=== PATIENT | female | born 1940 | race Caucasian/White ===

== ENCOUNTER 2017-03-20 11:31 | Inpatient (IN) | payer MEDICARE ==
[~2017-03-20] VITALS: Ht 182.9 cm; Wt 88.1 kg
[2017-03-20] MEDS ORDERED: ACET325T9 PO (13:46)
[2017-03-20] MEDS ORDERED: OMEG1CAP6 PO (13:46)
[2017-03-20] MEDS ORDERED: SIMV20TA3 PO (13:46)
[2017-03-20] MEDS ORDERED: ASPI-630 PO (13:46)
[2017-03-20] MEDS ORDERED: CHOL100013 PO (13:46)
[2017-03-20] MEDS: ACETAMINOPHEN 325 MG TABLET. PO PRN (14:51)
[2017-03-20 15:00] VITALS: BP 139/78
[2017-03-20 15:28] LABS: BASO % 0 % (0-3); EOS % 1 % (0-3); HEMATOCRIT 42.4 % (36.0-47.0); HEMOGLOBIN 14.4 g/dL (12.0-15.5); LYMPH # 1.8 x10^3/uL (1.0-4.8); LYMPH % 16 % (24-48); MEAN CORPUSCULAR HEMOGLOBIN 32 pg (25-35); MEAN CORPUSCULAR HGB CONC 34 g/dL (31-37); MEAN CORPUSCULAR VOLUME 95 fL (79-100); MONO % 22 % (0-9); NEUT % 61 % (31-73); PLATELET COUNT 69 x10^3/uL (140-400); RED BLOOD COUNT 4.48 x10^6/uL (3.50-5.40); RED CELL DISTRIBUTION WIDTH 13.3 % (11.5-14.5); WHITE BLOOD COUNT 11.3 x10^3/uL (4.0-11.0)
[2017-03-20 16:18] LABS: ALBUMIN 3.4 g/dL (3.4-5.0); ALBUMIN/GLOBULIN RATIO 0.9 (1.0-1.7); CALCIUM 9.1 mg/dL (8.5-10.1); CREATININE 0.7 mg/dL (0.6-1.0); GFR 81.6; POTASSIUM 3.8 mmol/L (3.5-5.1); TOTAL BILIRUBIN 0.3 mg/dL (0.2-1.0); TOTAL PROTEIN 7.2 g/dL (6.4-8.2)
[2017-03-20 17:04] LABS: % EOS 1 % (0-5); OVALOCYTES OCC; PLT ESTIMATE DECREASED (ADEQUATE); POLYCHROMASIA SLIGHT; SCHISTOCYTES OCC
[2017-03-20 17:26] LABS: BILIRUBIN,URINE NEGATIVE (NEG); GLUCOSE,URINE NEGATIVE (NEG); NITRITE,URINE NEGATIVE (NEG); PH,URINE 5.5; PROTEIN,URINE 30 mg/dL (NEG-TRACE)
[2017-03-20] MEDS ORDERED: VANCOMYCIN PER PHARMACY MC PRN (17:30)
[2017-03-20 17:40] LABS: RBC,URINE 0 /HPF (0-2)
[2017-03-20 17:41] LABS: BACTERIA,URINE 0 /HPF (0-FEW); SQUAMOUS EPITHELIAL CELL,UR OCC /LPF; WBC,URINE OCC /HPF (0-4)
[2017-03-20] MEDS: PIPERACILLIN/TAZOBACTAM 3.375 GM in IV NORMAL SALINE 50ML 50 ML IV SCH (18:32)
[2017-03-20 18:50] VITALS: BP 132/74
[2017-03-20] MEDS ORDERED: VANCOMYCIN 2 GM in IV NORMAL SALINE 500ML BAG 500 ML IV ONE (19:00)
[2017-03-20 19:59] VITALS: BP 125/75
[2017-03-20] MEDS: SIMVASTATIN 20 MG TABLET PO SCH (20:03)
[2017-03-20 23:00] VITALS: BP 132/101
[2017-03-21] MEDS: PIPERACILLIN/TAZOBACTAM 3.375 GM in IV NORMAL SALINE 50ML 50 ML IV SCH ×2 (00:03→05:37)
[2017-03-21 03:00] VITALS: BP 132/72
[2017-03-21 07:00] VITALS: BP 128/73
[2017-03-21] MEDS ORDERED: VANCOMYCIN 1.5 GM in IV NORMAL SALINE 500ML BAG 500 ML IV SCH (07:00)
--- NOTE | 2017-03-21 07:20 | PDOC ---
Infectious Disease Note ROS ROS GEN: Denies fevers, chills, sweats HEENT: Denies blurred vision, sore throat CV: Denies chest pain RESP: Denies shortness of air, cough GI: Denies n/v/d NEURO: Denies confusion, dizziness MSK: Denies weakness, joint pain/swelling Vital Sign Vital Signs Vital Signs Date Time Temp Pulse Resp B/P (MAP) Pulse Ox O2 Delivery O2 Flow Rate FiO2 03/21/17 03:00 98.1 19 132/72 (92) 90 Room Air 98.1 03/20/17 23:00 73 Physical Exam PHYSICAL EXAM GENERAL: NAD, Alert HEENT: PERRL, OC/OP NECK: Supple, no JVD, no LN LUNGS: Clear HEART: S1S2, no gallop, no murmur ABD: Soft, NT, no organomegaly, no rebound EXT: No edema, no cyanosis [employer]: Alert, oriented x 3, no focal neurologic deficit SKIN: No rash IV: ok Labs Lab Laboratory Tests Test 03/20/17 14:55 03/20/17 16:30 White Blood Count 11.3 x10^3/uL (4.0-11.0) Red Blood Count 4.48 x10^6/uL (3.50-5.40) Hemoglobin 14.4 g/dL (12.0-15.5) Hematocrit 42.4 % (36.0-47.0) Mean Corpuscular Volume 95 fL (79-100) Mean Corpuscular Hemoglobin 32 pg (25-35) Mean Corpuscular Hemoglobin Concent 34 g/dL (31-37) Red Cell Distribution Width 13.3 % (11.5-14.5) Platelet Count 69 x10^3/uL (140-400) Neutrophils (%) (Auto) 61 % (31-73) Lymphocytes (%) (Auto) 16 % (24-48) Monocytes (%) (Auto) 22 % (0-9) Eosinophils (%) (Auto) 1 % (0-3) Basophils (%) (Auto) 0 % (0-3) Neutrophils # (Auto) 6.9 x10^3uL (1.8-7.7) Lymphocytes # (Auto) 1.8 x10^3/uL (1.0-4.8) Monocytes # (Auto) 2.5 x10^3/uL (0.0-1.1) Eosinophils # (Auto) 0.1 x10^3/uL (0.0-0.7) Basophils # (Auto) 0.0 x10^3/uL (0.0-0.2) Segmented Neutrophils % 64 % (35-66) Lymphocytes % 22 % (24-48) Monocytes % 13 % (0-10) Eosinophils % 1 % (0-5) Platelet Estimate Decreased (ADEQUATE) Large Platelets Occ Polychromasia Slight Ovalocytes Occ Schistocytes Occ Sodium Level 143 mmol/L (136-145) Potassium Level 3.8 mmol/L (3.5-5.1) Chloride Level 103 mmol/L (98-107) Carbon Dioxide Level 34 mmol/L (21-32) Anion Gap 6 (6-14) Blood Urea Nitrogen 19 mg/dL (7-20) Creatinine 0.7 mg/dL (0.6-1.0) Estimated GFR (Cockcroft-Gault) 81.6 BUN/Creatinine Ratio 27 (6-20) Glucose Level 161 mg/dL (70-99) Calcium Level 9.1 mg/dL (8.5-10.1) Total Bilirubin 0.3 mg/dL (0.2-1.0) Aspartate Amino Transf (AST/SGOT) 19 U/L (15-37) Alanine Aminotransferase (ALT/SGPT) 29 U/L (14-59) Alkaline Phosphatase 65 U/L (46-116) Total Protein 7.2 g/dL (6.4-8.2) Albumin 3.4 g/dL (3.4-5.0) Albumin/Globulin Ratio 0.9 (1.0-1.7) Urine Color Kelsey Urine Clarity Clear Urine pH 5.5 Urine Specific [place] >=1.030 Urine Protein 30 mg/dL (NEG-TRACE) Urine Glucose (UA) Negative mg/dL (NEG) Urine Ketones (Stick) Trace mg/dL (NEG) Urine Blood Negative (NEG) Urine Nitrite Negative (NEG) Urine Bilirubin Negative (NEG) Urine Urobilinogen Dipstick 1.0 mg/dL (0.2 mg/dL) Urine Leukocyte Esterase Negative (NEG) Urine RBC 0 /HPF (0-2) Urine WBC Occ /HPF (0-4) Urine Squamous Epithelial Cells Occ /LPF Urine Bacteria 0 /HPF (0-FEW) Urine Mucus Mod /LPF Objective Assessment Leukocytosis Right facial cellulitis Sinusitis Hyperglycemia thrombocytopenia ? early COPD Plan Plan of Care Change to Unasyn Cont Zyvox Afrin for 2 days Hgb A1c F/u labs and response Thank you # [id number] JANE HERNANDEZ MD Mar 21, 2017 07:20
[2017-03-21] MEDS: AMPICILLIN/SULBACTAM 3 GM in IV NORMAL SALINE 100ML 100 ML IV SCH ×4 (08:43→23:23)
[2017-03-21] MEDS: LINEZOLID 600 MG TABLET PO SCH ×2 (08:47→20:09)
[2017-03-21] MEDS: OMEGA-3 FATTY ACIDS/FISH OIL 1,000 MG CAPSULE. PO SCH (08:47)
[2017-03-21] MEDS: CHOLECALCIFEROL (VITAMIN D3) 1,000 UNIT TABLET PO SCH (08:47)
[2017-03-21] MEDS: OXYMETAZOLINE 0.05% NASAL SPRAY 30ML BOTTLE. NS SCH ×2 (08:48→20:09)
[2017-03-21] MEDS: ASPIRIN CHEWABLE 81 MG TABLET. PO SCH (08:48)
[2017-03-21 09:02] LABS: HEMATOCRIT 40.2 % (36.0-47.0); HEMOGLOBIN 14.3 g/dL (12.0-15.5); RED BLOOD COUNT 4.33 x10^6/uL (3.50-5.40); RED CELL DISTRIBUTION WIDTH 13.1 % (11.5-14.5); WHITE BLOOD COUNT 6.6 x10^3/uL (4.0-11.0)
--- NOTE | 2017-03-21 10:32 | PDOC ---
GENERAL General: see dictated H&P. Problems: VITAL SIGNS Vital Signs: Vital Signs Date Time Temp Pulse Resp B/P (MAP) Pulse Ox O2 Delivery O2 Flow Rate FiO2 03/21/17 07:00 98.4 63 20 128/73 (91) 88 Room Air 98.4 ALLERGIES Allergies: Allergies Coded Allergies Type Severity Reaction Last Updated Verified No Known Drug Allergies 03/20/17 No MEDS Medications: Current Medications Medications (Trade) Dose Ordered Sig/Christie Start Time Stop Time Status Last Admin Dose Admin Acetaminophen (Tylenol) 650 mg PRN Q6HRS PRN 03/20/17 14:45 03/20/17 14:51 650 MG Ampicillin Sodium/ Sulbactam Sodium 3 gm/Sodium Chloride 100 ml @ 200 mls/hr Q6HRS 03/21/17 08:00 03/21/17 08:43 200 MLS/HR Aspirin (Children'S Aspirin) 81 mg DAILY 03/21/17 09:00 03/21/17 08:48 81 MG Fish Oil (Fish Oil) 1,000 mg DAILY 03/21/17 09:00 03/21/17 08:47 1,000 MG Linezolid (Zyvox) 600 mg BID 03/21/17 09:00 03/21/17 08:47 600 MG Nicotine (Nicoderm Cq 14mg) 1 patch PRN DAILY PRN 03/20/17 15:45 Oxymetazoline HCl (Afrin) 2 spray BID 03/21/17 09:00 03/21/17 08:48 2 SPRAY Piperacillin Sod/ Tazobactam Sod 3.375 gm/Sodium Chloride 50 ml @ 100 mls/hr Q6HRS 03/20/17 18:00 03/21/17 07:13 DC 03/21/17 05:37 100 MLS/HR Simvastatin (Zocor) 20 mg QHS 03/20/17 21:00 03/20/17 20:03 20 MG Vancomycin HCl 1 each 1X ONCE 03/22/17 06:30 03/22/17 06:30 DC Vancomycin HCl (Vanco Per Pharmacy) 1 each PRN DAILY PRN 03/20/17 17:30 03/21/17 07:13 DC 03/20/17 17:31 1 EACH Vancomycin HCl 1.5 gm/Sodium Chloride 500 ml @ 250 mls/hr Q12H 03/21/17 07:00 03/21/17 07:13 DC 03/21/17 06:24 250 MLS/HR Vancomycin HCl 2 gm/Sodium Chloride 500 ml @ 250 mls/hr 1X ONCE 03/20/17 19:00 03/20/17 20:59 DC 03/20/17 19:51 250 MLS/HR Vitamin D (Vitamin D3) 1,000 unit DAILY 03/21/17 09:00 03/21/17 08:47 1,000 UNIT LAB Lab: Laboratory Tests Test 03/20/17 14:55 03/20/17 16:30 03/21/17 08:55 White Blood Count 11.3 x10^3/uL (4.0-11.0) 6.6 x10^3/uL (4.0-11.0) Red Blood Count 4.48 x10^6/uL (3.50-5.40) 4.33 x10^6/uL (3.50-5.40) Hemoglobin 14.4 g/dL (12.0-15.5) 14.3 g/dL (12.0-15.5) Hematocrit 42.4 % (36.0-47.0) 40.2 % (36.0-47.0) Mean Corpuscular Volume 95 fL (79-100) 93 fL (79-100) Mean Corpuscular Hemoglobin 32 pg (25-35) 33 pg (25-35) Mean Corpuscular Hemoglobin Concent 34 g/dL (31-37) 36 g/dL (31-37) Red Cell Distribution Width 13.3 % (11.5-14.5) 13.1 % (11.5-14.5) Platelet Count 69 x10^3/uL (140-400) 69 x10^3/uL (140-400) Neutrophils (%) (Auto) 61 % (31-73) Lymphocytes (%) (Auto) 16 % (24-48) Monocytes (%) (Auto) 22 % (0-9) Eosinophils (%) (Auto) 1 % (0-3) Basophils (%) (Auto) 0 % (0-3) Neutrophils # (Auto) 6.9 x10^3uL (1.8-7.7) Lymphocytes # (Auto) 1.8 x10^3/uL (1.0-4.8) Monocytes # (Auto) 2.5 x10^3/uL (0.0-1.1) Eosinophils # (Auto) 0.1 x10^3/uL (0.0-0.7) Basophils # (Auto) 0.0 x10^3/uL (0.0-0.2) Segmented Neutrophils % 64 % (35-66) Lymphocytes % 22 % (24-48) Monocytes % 13 % (0-10) Eosinophils % 1 % (0-5) Platelet Estimate Decreased (ADEQUATE) Large Platelets Occ Polychromasia Slight Ovalocytes Occ Schistocytes Occ Sodium Level 143 mmol/L (136-145) Potassium Level 3.8 mmol/L (3.5-5.1) Chloride Level 103 mmol/L (98-107) Carbon Dioxide Level 34 mmol/L (21-32) Anion Gap 6 (6-14) Blood Urea Nitrogen 19 mg/dL (7-20) Creatinine 0.7 mg/dL (0.6-1.0) Estimated GFR (Cockcroft-Gault) 81.6 BUN/Creatinine Ratio 27 (6-20) Glucose Level 161 mg/dL (70-99) Calcium Level 9.1 mg/dL (8.5-10.1) Total Bilirubin 0.3 mg/dL (0.2-1.0) Aspartate Amino Transf (AST/SGOT) 19 U/L (15-37) Alanine Aminotransferase (ALT/SGPT) 29 U/L (14-59) Alkaline Phosphatase 65 U/L (46-116) Total Protein 7.2 g/dL (6.4-8.2) Albumin 3.4 g/dL (3.4-5.0) Albumin/Globulin Ratio 0.9 (1.0-1.7) Urine Color Kelsey Urine Clarity Clear Urine pH 5.5 Urine Specific [place] >=1.030 Urine Protein 30 mg/dL (NEG-TRACE) Urine Glucose (UA) Negative mg/dL (NEG) Urine Ketones (Stick) Trace mg/dL (NEG) Urine Blood Negative (NEG) Urine Nitrite Negative (NEG) Urine Bilirubin Negative (NEG) Urine Urobilinogen Dipstick 1.0 mg/dL (0.2 mg/dL) Urine Leukocyte Esterase Negative (NEG) Urine RBC 0 /HPF (0-2) Urine WBC Occ /HPF (0-4) Urine Squamous Epithelial Cells Occ /LPF Urine Bacteria 0 /HPF (0-FEW) Urine Mucus Mod /LPF WANDER SALMON MD Mar 21, 2017 10:32
[2017-03-21 11:00] VITALS: BP 126/72
--- NOTE | 2017-03-21 11:33 | HP ---
ADMIT DATE: 03/20/2017 CHIEF COMPLAINT AND HISTORY OF PRESENT ILLNESS: This is a 76-year-old white male who is well known to me from followup in the office. The patient was seen on the day of admission in the office and had been to urgent care earlier in the week for the facial cellulitis. It started on the right side, was progressing to the left despite being on Augmentin. He had had some fevers and chills, was generally not feeling well and it was elected to admit him to the hospital for facial cellulitis with some evidence of some induration to the right of the nasal bridge. PAST MEDICAL HISTORY: Remarkable for hyperlipidemia. PAST SURGICAL HISTORY: Remarkable for tonsillectomy and adenoidectomy, cataract surgeries, and bilateral total knee replacements. MEDICATIONS: Brought with the patient, listed on the computer and have been addressed. ALLERGIES: No known drug allergies. SOCIAL HISTORY: He is a smoker, does drink beer, does not use drugs. FAMILY HISTORY: Noncontributory. REVIEW OF SYSTEMS: As that is mentioned above. PHYSICAL EXAMINATION: GENERAL: He is a well-developed, well-nourished white male who does not appear to be in any acute distress. VITAL SIGNS: Stable. He is afebrile in the office. HEAD, EYES, EARS, NOSE, THROAT: Remarkable for right greater than left facial cellulitis with again an area of approximately 3 x 1-1/2 inch area of induration on the right side lateral to the bridge of the nose. NECK: Supple, without any thyromegaly. CHEST: Reveals occasional rhonchi, but good breath sounds. HEART: Regular rate and rhythm without S3, S4 or murmur. ABDOMEN: Soft, nontender, without hepatosplenomegaly or masses. EXTREMITIES: Without cyanosis, clubbing or edema. NEUROLOGIC: He is intact. IMPRESSION: Failed outpatient treatment of facial cellulitis as outlined above. PLAN: The patient has been admitted. Infectious Disease will be consulted for direction on antibiotics from this point forward, and we will need to watch this area on his face to make sure it does not require an incision and drainage before it is over. WANDER SALMON MD DR: FILIPE/mehran JOB#: [id number] / [id number]
[2017-03-21] MEDS: NICOTINE 14MG PATCH. TD PRN (11:44)
[2017-03-21 14:58] VITALS: BP 109/69
[2017-03-21] MEDS: ACETAMINOPHEN 325 MG TABLET. PO PRN (18:03)
[2017-03-21 19:00] VITALS: BP 119/82
[2017-03-21] MEDS: SIMVASTATIN 20 MG TABLET PO SCH (20:09)
--- NOTE | 2017-03-21 21:33 | CONS ---
DATE OF CONSULTATION: 03/21/2017 PATIENT ROOM: 517. REQUESTING PHYSICIAN: Arden Silva MD REASON FOR CONSULTATION: Cellulitis, sinusitis. HISTORY OF PRESENT ILLNESS: The patient is a pleasant 76-year-old gentleman, has a significant past medical history who states that Thursday evening with today being Thursday, he went to bed, had a little discomfort in the right side of his nose. When he awakened Thursday, the area on the right side of his nose was swollen and his eye was almost swollen shut. He presented to [facility] and they requested that he be admitted, but he denied admission and they give him a pill and a prescription and he left. He awakened with both eyes swollen shut. He again returned to [facility] Emergency Room, they asked for him to be admitted, but he declined; they given IV antibiotic and he was discharged and he followed up with Dr. Silva on Thursday and subsequently was sent to [facility] for admission. He has not been having any fevers, no chills. He has had occasional sweats. He has a little bit of headache at times. No change in vision. He had a little bit of blood out of the right side of his nose using a Q-tip, but denies any drainage down the back of his throat. Denies any complications with his ears. No cough. He had no chest pain, no nausea or vomiting, no diarrhea. He is a little bit constipated ____. No problems passing his urine. Denies any bug bites or trauma to the area that he knows off. Now, he has been admitted. His white blood cell count was 11.3 at the time of presentation. He has been placed on vancomycin, Zosyn and Zyvox. PAST MEDICAL HISTORY: Positive for hyperlipidemia. PAST SURGICAL HISTORY: Positive for cataract surgery, tonsillectomy, vasectomy, bilateral knee replacements and has a history of a left lower extremity fracture. REVIEW OF SYSTEMS: Otherwise negative except for as mentioned above. ALLERGIES: No known drug allergies. SOCIAL HISTORY: He is a smoker, has occasional alcohol use. No pets. He is not . He is a retired tinsley. FAMILY HISTORY: Positive for a brother who with complications of diabetes. He thinks his father was diabetic too. CURRENT MEDICATIONS: Include Zosyn, vancomycin, Zyvox, aspirin, nicotine patch, omega-3, Zocor. PHYSICAL EXAMINATION: VITAL SIGNS: He is afebrile, temperature 98.1, pulse 73, respirations 19, blood pressure 132/72, satting 98% on room air. CONSTITUTIONAL: He is a pleasant gentleman. He is cooperative. He is in no acute distress. HEENT: Pupils are status post cataract surgery. He has normal conjunctivae. His right nasal area is swollen. His right nasal passage is also obstructed. There is some tenderness and some induration associated with the right side ____ as well as some erythema. Oral cavity, oropharynx, has dentures, otherwise clear. NECK: Supple, no JVD. LUNGS: Had some mild trace wheeze on the right. HEART: S1, S2. ABDOMEN: Obese, soft, nontender, nondistended with positive bowel sounds. EXTREMITIES: Without clubbing or cyanosis. No gross edema. SKIN: Without signs of rash. NEUROLOGIC: He is nonfocal. PSYCHIATRIC: Affect is pleasant. LABORATORY VALUES: White count 11.3, hemoglobin 14.4, platelets of 69, neutrophils 61, lymphs are 61, monos are 22. Creatinine 0.7, glucose 161. He had normal liver function study tests. Urinalysis is clean. There are no radiological studies. IMPRESSION: 1. Leukocytosis. 2. Right facial cellulitis. 3. Sinusitis. 4. Hyperglycemia. 5. Thrombocytopenia. 6. Questionable early chronic obstructive pulmonary disease. RECOMMENDATIONS: We will change to Unasyn. We will continue the Zyvox, but orally. Continues Afrin for 2 days. Check a hemoglobin A1c given his elevation of his glucose and family history. Follow up on labs and response. Thank you for allowing me to participate in this patient's care. If you have any questions, please do not hesitate to contact me. JANE HERNANDEZ MD DR: KATRIN/mehran JOB#: [id number] / [id number]
[2017-03-21 23:00] VITALS: BP 139/77
[2017-03-22 03:13] VITALS: BP 126/79
[2017-03-22] MEDS: AMPICILLIN/SULBACTAM 3 GM in IV NORMAL SALINE 100ML 100 ML IV SCH ×4 (05:48→23:14)
[2017-03-22 07:00] VITALS: BP 149/82
[2017-03-22] MEDS: CHOLECALCIFEROL (VITAMIN D3) 1,000 UNIT TABLET PO SCH (07:47)
[2017-03-22] MEDS: OMEGA-3 FATTY ACIDS/FISH OIL 1,000 MG CAPSULE. PO SCH (07:48)
[2017-03-22] MEDS: LINEZOLID 600 MG TABLET PO SCH ×2 (07:48→20:32)
[2017-03-22] MEDS: ASPIRIN CHEWABLE 81 MG TABLET. PO SCH (07:48)
[2017-03-22] MEDS: NICOTINE 14MG PATCH. TD PRN (07:49)
[2017-03-22] MEDS: OXYMETAZOLINE 0.05% NASAL SPRAY 30ML BOTTLE. NS SCH ×2 (07:57→20:35)
[2017-03-22] MEDS: ACETAMINOPHEN 325 MG TABLET. PO PRN (07:57)
--- NOTE | 2017-03-22 09:59 | PDOC ---
Infectious Disease Note Subjective Subjective Breathing a little better through right nostril Less facial redness, swelling and pain ROS ROS GEN: Denies fevers, chills, sweats HEENT: Denies blurred vision, sore throat CV: Denies chest pain RESP: Denies shortness of air, cough GI: Denies n/v/d Vital Sign Vital Signs Vital Signs Date Time Temp Pulse Resp B/P (MAP) Pulse Ox O2 Delivery O2 Flow Rate FiO2 03/22/17 08:00 Room Air 03/22/17 07:00 97.7 72 18 149/82 (104) 92 97.7 Physical Exam PHYSICAL EXAM GENERAL: Propped up in bed, NAD HEENT: PERRL, OC/OP clear. Mild localized induration and swelling of right side of nose near eye, mildly tender. No redness NECK: Supple LUNGS: Clear HEART: S1 andS2 ABD: Soft, NT EXT: No edema, no cyanosis [employer]ESSIONAL: Alert, oriented x 3, no focal neurologic deficit SKIN: No rash IV: ok Objective Assessment Leukocytosis, better Right facial cellulitis, improving Sinusitis Hyperglycemia Thrombocytopenia ? early COPD Plan Plan of Care Zyvox and Unasyn Afrin for 2 days Hgb A1c 5.6 D/w MARQUITA SAUL BRITTANY Mar 22, 2017 09:59
[2017-03-22 11:00] VITALS: BP 131/70
--- NOTE | 2017-03-22 13:52 | PDOC ---
SUBJECTIVE Subjective much better OBJECTIVE Vital Signs Vital Signs Date Time Temp Pulse Resp B/P (MAP) Pulse Ox O2 Delivery O2 Flow Rate FiO2 03/22/17 11:00 97.9 68 20 131/70 (90) 92 Room Air 97.9 03/22/17 08:00 Room Air 03/22/17 07:00 97.7 72 18 149/82 (104) 92 Room Air 97.7 03/22/17 03:13 96.6 72 20 126/79 (95) 91 Room Air 96.6 03/21/17 23:00 97.7 59 20 139/77 (97) 92 Room Air 97.7 03/21/17 20:00 Room Air 03/21/17 19:00 98.4 64 20 119/82 (94) 95 Room Air 98.4 03/21/17 14:58 97.7 67 20 109/69 (82) 92 Room Air 97.7 PHYSICAL EXAM Physical Exam right face swelling and pain much better heart RRR lungs clear ext no edema abd soft and none tender ASSESSMENT/PLAN Assessment/Plan 1- Right facial cellulitis, improving on IV Abx by ID 2- Sinusitis 3-eukocytosis, better 4- Hyperglycemia HbA1c 5.6 brother diabetic discussed diet and loose wt 5- Thrombocytopenia Dr. Silva will resume care in AM Problems: WESLEY JOHNSON MD Mar 22, 2017 13:52
[2017-03-22 15:00] VITALS: BP 140/95
[2017-03-22 19:00] VITALS: BP 126/72
[2017-03-22] MEDS: SIMVASTATIN 20 MG TABLET PO SCH (20:32)
[2017-03-22 22:57] VITALS: BP 150/85
[2017-03-23 03:00] VITALS: BP 124/70
[2017-03-23 04:58] LABS: BASO % 0 % (0-3); EOS % 2 % (0-3); HEMATOCRIT 40.1 % (36.0-47.0); HEMOGLOBIN 13.6 g/dL (12.0-15.5); LYMPH # 1.5 x10^3/uL (1.0-4.8); LYMPH % 27 % (24-48); MEAN CORPUSCULAR HEMOGLOBIN 32 pg (25-35); MEAN CORPUSCULAR HGB CONC 34 g/dL (31-37); MEAN CORPUSCULAR VOLUME 95 fL (79-100); MONO % 23 % (0-9); NEUT % 48 % (31-73); PLATELET COUNT 82 x10^3/uL (140-400); RED BLOOD COUNT 4.25 x10^6/uL (3.50-5.40); WHITE BLOOD COUNT 5.7 x10^3/uL (4.0-11.0)
[2017-03-23 05:11] LABS: CALCIUM 8.8 mg/dL (8.5-10.1); CREATININE 0.6 mg/dL (0.6-1.0); GFR 97.5; POTASSIUM 4.1 mmol/L (3.5-5.1)
[2017-03-23] MEDS: AMPICILLIN/SULBACTAM 3 GM in IV NORMAL SALINE 100ML 100 ML IV SCH (05:21)
[2017-03-23 07:30] VITALS: BP 141/68
--- NOTE | 2017-03-23 08:41 | PDOC ---
Infectious Disease Note Subjective Subjective Better and ready to go home Less facial redness, swelling and pain. No fullness or pain with biting ROS ROS GEN: Denies fevers, chills, sweats HEENT: Denies blurred vision, sore throat CV: Denies chest pain RESP: Denies shortness of air, cough GI: Denies n/v/d NEURO: Denies confusion, dizziness MSK: Denies weakness, joint pain/swelling Vital Sign Vital Signs Vital Signs Date Time Temp Pulse Resp B/P (MAP) Pulse Ox O2 Delivery O2 Flow Rate FiO2 03/23/17 03:00 96.4 72 18 124/70 (88) 93 Room Air 96.4 Physical Exam PHYSICAL EXAM GENERAL: NAD, Alert HEENT: PERRL, OC/OP - clear with dentures NECK: Supple, no JVD, no LN LUNGS: Clear HEART: S1S2, no gallop, no murmur ABD: Soft, NT, no organomegaly, no rebound EXT: No edema, no cyanosis FINANCE MANAGER: Alert, oriented x 3, no focal neurologic deficit SKIN: No rash IV: ok Labs Lab Laboratory Tests Test 03/23/17 03:50 White Blood Count 5.7 x10^3/uL (4.0-11.0) Red Blood Count 4.25 x10^6/uL (3.50-5.40) Hemoglobin 13.6 g/dL (12.0-15.5) Hematocrit 40.1 % (36.0-47.0) Mean Corpuscular Volume 95 fL (79-100) Mean Corpuscular Hemoglobin 32 pg (25-35) Mean Corpuscular Hemoglobin Concent 34 g/dL (31-37) Red Cell Distribution Width 13.0 % (11.5-14.5) Platelet Count 82 x10^3/uL (140-400) Neutrophils (%) (Auto) 48 % (31-73) Lymphocytes (%) (Auto) 27 % (24-48) Monocytes (%) (Auto) 23 % (0-9) Eosinophils (%) (Auto) 2 % (0-3) Basophils (%) (Auto) 0 % (0-3) Neutrophils # (Auto) 2.7 x10^3uL (1.8-7.7) Lymphocytes # (Auto) 1.5 x10^3/uL (1.0-4.8) Monocytes # (Auto) 1.3 x10^3/uL (0.0-1.1) Eosinophils # (Auto) 0.1 x10^3/uL (0.0-0.7) Basophils # (Auto) 0.0 x10^3/uL (0.0-0.2) Sodium Level 143 mmol/L (136-145) Potassium Level 4.1 mmol/L (3.5-5.1) Chloride Level 106 mmol/L (98-107) Carbon Dioxide Level 33 mmol/L (21-32) Anion Gap 4 (6-14) Blood Urea Nitrogen 13 mg/dL (7-20) Creatinine 0.6 mg/dL (0.6-1.0) Estimated GFR (Cockcroft-Gault) 97.5 Glucose Level 106 mg/dL (70-99) Calcium Level 8.8 mg/dL (8.5-10.1) Objective Assessment Leukocytosis -better Right facial cellulitis - better Sinusitis -better Hyperglycemia thrombocytopenia -better ? early COPD Plan Plan of Care Cont Zyvox this am D/c Unasyn dose Augmentin D/c Afrin Ok to d/c home Has 8 days of Augmentin at home so can finish that out Home on Doxy also for 7 days. Cautioned on sun exposure F/u with Dr. Silva D/w JANE HERNANDEZ MD Mar 23, 2017 08:41
[2017-03-23] MEDS: OMEGA-3 FATTY ACIDS/FISH OIL 1,000 MG CAPSULE. PO SCH (08:42)
[2017-03-23] MEDS: CHOLECALCIFEROL (VITAMIN D3) 1,000 UNIT TABLET PO SCH (08:42)
[2017-03-23] MEDS: LINEZOLID 600 MG TABLET PO SCH (08:42)
[2017-03-23] MEDS: ASPIRIN CHEWABLE 81 MG TABLET. PO SCH (08:42)
[2017-03-23] MEDS ORDERED: AMOXICILLIN/K CLAV 875/125MG TABLET. PO ONE (08:45)
[2017-03-23 10:30] VITALS: BP 138/66
--- NOTE | 2017-03-24 02:10 | DS ---
DATE OF DISCHARGE: 03/23/2017 PRIMARY DIAGNOSIS: Right facial cellulitis, unresponsive to outpatient therapy. ADDITIONAL DIAGNOSES: Leukocytosis, improved; sinusitis, improved; hyperglycemia and thrombocytopenia, improving. CHIEF COMPLAINT AND HISTORY OF PRESENT ILLNESS: This is a 76-year-old white male who was admitted with failed outpatient treatment of right facial cellulitis with fevers, chills, pain. SUMMARY OF STAY: The patient was admitted, treated with Unasyn and Zyvox, improved dramatically throughout the stay to the point where he was felt he could be dismissed on the day of discharge by ID on 8 more days of Augmentin and a week of doxycycline. His leukocytosis of 11,000 improved with antibiotics. His facial cellulitis essentially resolved. He was noted to be thrombocytopenic in a range of about 80,000; this was improving by the time of discharge. Rest of his hematologic ____ were normal. This will be followed as an outpatient. He was also noted to be hyperglycemic on admission with sugar of 161 that was 106 when rechecked on the day of discharge. DISPOSITION: The patient is discharged to home, regular diet, activity as tolerated. Office in 1 week. DISCHARGE MEDICATIONS: Listed on the med rec and have been addressed ____ usual home meds plus the Augmentin and doxycycline as outlined above. WANDER SALMON MD DR: FILIPE/mehran JOB#: [id number] / [id number]
== END 2017-03-23 12:07 | disposition home or self-care (01) | DRG 603 ==
LOC: 5 NORTH 12:52 → EDSEX 12:52
PROVIDERS: ADMIT Family Medicine; ATTEND Family Medicine
DX: L03.211 Cellulitis of face (principal); D69.6 Thrombocytopenia, unspecified; J32.9 Chronic sinusitis, unspecified; E78.5 Hyperlipidemia, unspecified; F17.200 Nicotine dependence, unspecified, uncomplicated; R73.9 Hyperglycemia, unspecified; Z96.653 Presence of artificial knee joint, bilateral; K59.00 Constipation, unspecified; Z83.3 Family history of diabetes mellitus; Z90.89 Acquired absence of other organs; Z98.49 Cataract extraction status, unspecified eye
CPT/HCPCS: 36415; 80048; 80053; 81001; 83036; 85007; 85025; 85027; 99406; J0295; J2020; J2543; J3370; J7040

== ENCOUNTER → 2017-07-10 | Outpatient (CLI) | payer MEDICARE | END | disposition home or self-care (01) | LOC: MRI 08:14 | DX: G44.021 Chronic cluster headache, intractable (principal); I73.9 Peripheral vascular disease, unspecified | CPT/HCPCS: 70551 ==

== ENCOUNTER 2020-08-30 17:29 | Emergency (ER) | payer MEDICARE ==
[~2020-08-30] VITALS: Ht 180.3 cm; Wt 97.0 kg
[~2020-08-30 17:29] MED LIST: ACET325T9 PO; ASPI-630 PO; CHOL100013 PO; OMEG1CAP6 PO; SIMV20TA18 PO
[2020-08-30] MEDS ORDERED: IV NORMAL SALINE 1000ML BAG 1,000 ML IV ONE (18:00)
[2020-08-30 18:05] LABS: BILIRUBIN,URINE NEGATIVE (NEG); CLARITY,URINE CLOUDY; COLOR,URINE AMBER; NITRITE,URINE NEGATIVE (NEG); PH,URINE 5.5 (<5.0-8.0); PROTEIN,URINE 30 mg/dL (NEG-TRACE)
[2020-08-30 18:11] LABS: BARBITURATES NEG (NEG); BENZODIAZEPINES NEG (NEG); CANNABINOIDS NEG (NEG); COCAINE NEG (NEG); METHADONE NEG (NEG); OPIATES NEG (NEG); PHENCYCLIDINE NEG (NEG)
[2020-08-30 18:12] LABS: AMPHETAMINE/METHAMPHETAMINE NEG (NEG)
[2020-08-30 18:15] LABS: BACTERIA,URINE 0 /HPF (0-FEW); RBC,URINE TNTC /HPF (0-2)
[2020-08-30] MEDS ORDERED: MORPHINE SULFATE 2 MG/ML VIAL. IV ONE (18:15)
[2020-08-30] MEDS ORDERED: ONDANSETRON PF 4 MG/2 ML VIAL. IVP ONE (18:15)
[2020-08-30 18:22] LABS: BASO # 0.1 x10^3/uL (0.0-0.2); BASO % 1 % (0-3); EOS % 0 % (0-3); HEMATOCRIT 41.9 % (39.0-53.0); HEMOGLOBIN 14.1 g/dL (13.0-17.5); LYMPH # 1.3 x10^3/uL (1.0-4.8); LYMPH % 12 % (24-48); MEAN CORPUSCULAR HEMOGLOBIN 30 pg (25-35); MEAN CORPUSCULAR HGB CONC 34 g/dL (31-37); MEAN CORPUSCULAR VOLUME 88 fL (79-100); MONO # 1.4 x10^3/uL (0.0-1.1); MONO % 13 % (0-9); NEUT % 75 % (31-73); PLATELET COUNT 67 x10^3/uL (140-400); RED BLOOD COUNT 4.73 x10^6/uL (4.30-5.70); RED CELL DISTRIBUTION WIDTH 14.8 % (11.5-14.5); WHITE BLOOD COUNT 10.8 x10^3/uL (4.0-11.0)
--- NOTE | 2020-08-30 18:31 | RAD ---
CT ABDOMEN+PELVIS WO History: Reason: LLQ pain-COVID VACCINE YESTERDAY / Spl. Instructions: / History: Technique: Noncontrast examination of the abdomen and pelvis. Coronal and sagittal reconstructions we re performed. Exposure: One or more of the following individualized dose reduction techniques were utilized for thi s examination: 1. Automated exposure control 2. Adjustment of the mA and/or kV according to patient size 3. Use of iterative reconstruction technique. Comparison: None Findings: Lower chest: No consolidation or pleural effusion. Abdomen and pelvis: The liver, spleen, and pancreas are unremarkable. Cholelithiasis. No biliary duct al dilatation. Right adrenal adenoma measures 2.4 x 2.1 cm. Moderate left hydronephrosis. Left perinephric and perirenal fat stranding. Mild dilatation of the le ft ureter. 4 mm left distal ureteral obstructing calculus (series 2 image 59). Decompressed urinary b ladder. No right hydronephrosis. Additional nonobstructing left intrarenal calculi. Extensive colonic diverticulosis. Normal appendix. No evidence of bowel obstruction. No pathologic ly mphadenopathy. No ascites. Fat-containing umbilical hernia also containing partial loop of small jannet l. Atheromatous plaque throughout the nonaneurysmal abdominal aorta and branch vessels. Rounded densities within the distal small bowel and cecum, likely related to recently ingested materi al. Prostamegaly. Bones: Multilevel lumbar spondylosis with rightward curvature Impression: 1. 4 mm left distal ureteral obstructing calculus contributing to moderate left hydronephrosis and p erinephric/periureteral fat stranding. 2. Additional nonobstructing left intrarenal calculi. 3. Cholelithiasis. Electronically signed by: Dimitri Goodrich DO (08/30/2020 6:29 PM) [facility]
[2020-08-30 18:32] LABS: CALCIUM 9.1 mg/dL (8.5-10.1); CREATININE 0.9 mg/dL (0.7-1.3); GFR 81.6; POTASSIUM 3.9 mmol/L (3.5-5.1)
[2020-08-30 18:38] LABS: ALBUMIN/GLOBULIN RATIO 1.2 (1.0-1.7); TOTAL BILIRUBIN 0.4 mg/dL (0.2-1.0); TOTAL PROTEIN 7.4 g/dL (6.4-8.2)
[2020-08-30] MEDS ORDERED: KETOROLAC 30 MG/ML VIAL. IVP ONE (19:00)
[2020-08-30] MEDS ORDERED: MORPHINE SULFATE 10 MG/ML VIAL. IV ONE (19:00)
[2020-08-30] MEDS ORDERED: TAMSULOSIN 0.4 MG CAP.ER.24H. PO ONE (19:00)
[2020-08-30] MEDS ORDERED: cefTRIAXone IV Push 1 GM VIAL. IVP ONE (19:00)
[2020-08-30 19:39] VITALS: BP 191/84
--- NOTE | 2020-08-30 19:42 | PHYS DOC ---
Past Medical History Past Medical History: COPD Past Surgical History: Tonsillectomy Additional Past Surgical Histo: BILATERAL KNEE SURGERIES Smoking Status: Current Every Day Smoker Alcohol Use: None General Adult EDM: Chief Complaint: ABDOMINAL PAIN HPI: HPI: Patient is a 79 year old male with history of COPD who presents to the ED today complaining of 10 out of 10 left lower quadrant abdominal pain with nausea that began at 1400 today. Patient denies any hematemesis or melena. He states his urine is very dark since this afternoon. Denies any personal history of kidney stones. Describes the pain as sharp and intermittent. Denies anything specifically exacerbating or relieving the pain Review of Systems: Review of Systems: Constitutional: Denies fever or chills. [] Eyes: Denies change in visual acuity. [] HENT: Denies nasal congestion or sore throat. [] Respiratory: Denies cough or shortness of breath. [] Cardiovascular: Denies chest pain or edema. [] GI: Reports left lower quadrant abdominal pain with nausea, denies vomiting, bloody stools or diarrhea. [] : Denies dysuria. [] Musculoskeletal: Denies back pain or joint pain. [] Integument: Denies rash. [] Neurologic: Denies headache, focal weakness or sensory changes. [] Psychiatric: Denies depression or anxiety. [] Heart Score: C/O Chest Pain: N/A Risk Factors: Risk Factors: DM, Current or recent (<one month) smoker, HTN, HLP, family history of CAD, obesity. Risk Scores: Score 0 - 3: 2.5% MACE over next 6 weeks - Discharge Home Score 4 - 6: 20.3% MACE over next 6 weeks - Admit for Clinical Observation Score 7 - 10: 72.7% MACE over next 6 weeks - Early Invasive Strategies Current Medications: Current Medications Medications (Trade) Dose Ordered Sig/Christie Start Time Stop Time Status Last Admin Dose Admin Ceftriaxone Sodium (Rocephin) 1 gm 1X ONCE 08/30/20 19:00 08/30/20 19:01 DC 08/30/20 19:00 1 GM Ketorolac Tromethamine (Toradol 30mg Vial) 30 mg 1X ONCE 08/30/20 19:00 08/30/20 19:01 DC 08/30/20 19:01 30 MG Morphine Sulfate (Morphine Sulfate) 5 mg 1X ONCE 08/30/20 19:00 08/30/20 19:01 DC 08/30/20 19:01 5 MG Ondansetron HCl (Zofran) 4 mg 1X ONCE 08/30/20 18:15 08/30/20 18:16 DC 08/30/20 18:20 4 MG Sodium Chloride 1,000 ml @ 1,000 mls/hr 1X ONCE 08/30/20 18:00 08/30/20 18:59 DC 08/30/20 18:20 1,000 MLS/HR Tamsulosin HCl (Flomax) 0.4 mg 1X ONCE 08/30/20 19:00 08/30/20 19:01 DC 08/30/20 19:01 0.4 MG Allergies: Allergies: Allergies Coded Allergies Type Severity Reaction Last Updated Verified No Known Drug Allergies 03/20/17 No Physical Exam: PE: Constitutional: Well developed, well nourished, no acute distress, non-toxic appearance. [] HENT: Normocephalic, atraumatic, bilateral external ears normal, oropharynx moist, no oral exudates, nose normal. [] Eyes: PERRLA, EOMI, conjunctiva normal, no discharge. [] Neck: Normal range of motion, no tenderness, supple, no stridor. [] Cardiovascular:Heart rate regular rhythm, no murmur [] Lungs & Thorax: Bilateral breath sounds clear to auscultation [] Abdomen: Rounded abdomen. Bowel sounds normal, soft, no right upper quadrant or right lower quadrant tenderness, no left upper quadrant tenderness, slight tenderness to the left lower quadrant, no masses, no pulsatile masses. [] Skin: Warm, dry, no erythema, no rash. [] Back: No tenderness, no CVA tenderness. [] Extremities: No tenderness, no cyanosis, no clubbing, ROM intact, no edema. [] Neurologic: Alert and oriented X 3, normal motor function, normal sensory function, no focal deficits noted. [] Psychologic: Affect normal, judgement normal, mood normal. [] Current Patient Data: Labs: Laboratory Tests Test 08/30/20 17:50 08/30/20 18:14 Urine Collection Type Unknown Urine Color Kelsey Urine Clarity Cloudy Urine pH 5.5 (<5.0-8.0) Urine Specific [place] 1.020 (1.000-1.030) Urine Protein 30 mg/dL (NEG-TRACE) Urine Glucose (UA) Negative mg/dL (NEG) Urine Ketones (Stick) Negative mg/dL (NEG) Urine Blood Large (NEG) Urine Nitrite Negative (NEG) Urine Bilirubin Negative (NEG) Urine Urobilinogen Dipstick 1.0 mg/dL (0.2 mg/dL) Urine Leukocyte Esterase Trace (NEG) Urine RBC Tntc /HPF (0-2) Urine WBC 1-4 /HPF (0-4) Urine Squamous Epithelial Cells Few /LPF Urine Bacteria 0 /HPF (0-FEW) Urine Opiates Screen Neg (NEG) Urine Methadone Screen Neg (NEG) Urine Barbiturates Neg (NEG) Urine Phencyclidine Screen Neg (NEG) Urine Amphetamine/Methamphetamine Neg (NEG) Urine Benzodiazepines Screen Neg (NEG) Urine Cocaine Screen Neg (NEG) Urine Cannabinoids Screen Neg (NEG) Urine Ethyl Alcohol Neg (NEG) White Blood Count 10.8 x10^3/uL (4.0-11.0) Red Blood Count 4.73 x10^6/uL (4.30-5.70) Hemoglobin 14.1 g/dL (13.0-17.5) Hematocrit 41.9 % (39.0-53.0) Mean Corpuscular Volume 88 fL (79-100) Mean Corpuscular Hemoglobin 30 pg (25-35) Mean Corpuscular Hemoglobin Concent 34 g/dL (31-37) Red Cell Distribution Width 14.8 % (11.5-14.5) H Platelet Count 67 x10^3/uL (140-400) L Neutrophils (%) (Auto) 75 % (31-73) H Lymphocytes (%) (Auto) 12 % (24-48) L Monocytes (%) (Auto) 13 % (0-9) H Eosinophils (%) (Auto) 0 % (0-3) Basophils (%) (Auto) 1 % (0-3) Neutrophils # (Auto) 8.0 x10^3/uL (1.8-7.7) H Lymphocytes # (Auto) 1.3 x10^3/uL (1.0-4.8) Monocytes # (Auto) 1.4 x10^3/uL (0.0-1.1) H Eosinophils # (Auto) 0.0 x10^3/uL (0.0-0.7) Basophils # (Auto) 0.1 x10^3/uL (0.0-0.2) Sodium Level 138 mmol/L (136-145) Potassium Level 3.9 mmol/L (3.5-5.1) Chloride Level 102 mmol/L (98-107) Carbon Dioxide Level 29 mmol/L (21-32) Anion Gap 7 (6-14) Blood Urea Nitrogen 15 mg/dL (8-26) Creatinine 0.9 mg/dL (0.7-1.3) Estimated GFR (Cockcroft-Gault) 81.6 BUN/Creatinine Ratio 17 (6-20) Glucose Level 167 mg/dL (70-99) H Calcium Level 9.1 mg/dL (8.5-10.1) Magnesium Level 2.0 mg/dL (1.8-2.4) Total Bilirubin 0.4 mg/dL (0.2-1.0) Aspartate Amino Transferase (AST) 19 U/L (15-37) Alanine Aminotransferase (ALT) 24 U/L (16-63) Alkaline Phosphatase 72 U/L (46-116) Total Protein 7.4 g/dL (6.4-8.2) Albumin 4.0 g/dL (3.4-5.0) Albumin/Globulin Ratio 1.2 (1.0-1.7) Lipase 58 U/L (73-393) L Ethyl Alcohol Level < 10 mg/dL (0-10) Laboratory Tests 08/30/20 18:14 Laboratory Tests 08/30/20 18:14 Vital Signs: Vital Signs Date Time Temp Pulse Resp B/P (MAP) Pulse Ox O2 Delivery O2 Flow Rate FiO2 08/30/20 17:54 97.8 70 16 190/83 (118) 90 Room Air 97.8 EKG: EKG: [] Radiology/Procedures: Radiology/Procedures: []PROCEDURE: CT ABDOMEN PELVIS WO CONTRAST CT ABDOMEN+PELVIS WO History: Reason: LLQ pain-COVID VACCINE YESTERDAY / Spl. Instructions: / History: Technique: Noncontrast examination of the abdomen and pelvis. Coronal and sagittal reconstructions were performed. Exposure: One or more of the following individualized dose reduction techniques were utilized for this examination: 1. Automated exposure control 2. Adjustment of the mA and/or kV according to patient size 3. Use of iterative reconstruction technique. Comparison: None Findings: Lower chest: No consolidation or pleural effusion. Abdomen and pelvis: The liver, spleen, and pancreas are unremarkable. Cholelithiasis. No biliary ductal dilatation. Right adrenal adenoma measures 2.4 x 2.1 cm. Moderate left hydronephrosis. Left perinephric and perirenal fat stranding. Mild dilatation of the left ureter. 4 mm left distal ureteral obstructing calculus (series 2 image 59). Decompressed urinary bladder. No right hydronephrosis. Additional nonobstructing left intrarenal calculi. Extensive colonic diverticulosis. Normal appendix. No evidence of bowel obstruction. No pathologic lymphadenopathy. No ascites. Fat-containing umbilical hernia also containing partial loop of small bowel. Atheromatous plaque throughout the nonaneurysmal abdominal aorta and branch vessels. Rounded densities within the distal small bowel and cecum, likely related to recently ingested material. Prostamegaly. Bones: Multilevel lumbar spondylosis with rightward curvature Impression: 1. 4 mm left distal ureteral obstructing calculus contributing to moderate left hydronephrosis and perinephric/periureteral fat stranding. 2. Additional nonobstructing left intrarenal calculi. 3. Cholelithiasis. Electronically signed by: Dimitri Goodrich DO (08/30/2020 6:29 PM) [facility] DICTATED and SIGNED BY: DIMITRI GOODRICH DO DATE: 08/30/20 [id number] 0 Course & Med Decision Making: Course & Med Decision Making Pertinent Labs and Imaging studies reviewed. (See chart for details) This is a 79-year-old male patient presenting to the ED today with complaints of left lower quadrant abdominal pain with nausea and dark urine, symptoms began this afternoon at around 2 PM CBC with no acute findings, CMP with no acute findings, UA noted for large amount of blood, trace amount of leukocytes. CT of the abdomen and pelvic noted for 4 mm left distal ureteral obstructing calculus contributing to moderate left hydronephrosis and perinephric/venkata ureteral fat stranding. Additional nonobstructing left intrarenal calculi. Cholelithiasis. Patient was given IV fluids, Toradol, Flomax, Rocephin IV and Zofran. Pain is well controlled. Discharge to home. Follow-up with urologist and PCP. Also provided general surgery for cholelithiasis Liv Disclaimer: Liv Disclaimer: This electronic medical record was generated, in whole or in part, using a voice recognition dictation system. Departure Departure Impression: Primary Impression: Kidney stone on left side Additional Impression: Cholelithiasis Qualified Codes: K80.20 - Calculus of gallbladder without cholecystitis without obstruction Disposition: 01 DC HOME SELF CARE/HOMELESS Condition: STABLE Referrals: WANDER SALMON MD (PCP) follow up next week with your doctor and urology provided [place] [phone] MARIA TERESA BAUGH MD follow up for gallstones Patient Instructions: Cholelithiasis, Kidney Stones, [id number] Additional Instructions: You were evaluated in the emergency room and noted to have a 4 mm kidney stone. Please follow-up with your primary care doctor as well as the urologist provided. Push fluids. Take the prescribed pain medicine and antibiotics as ordered. Take the prescribed Flomax as ordered. You were also noted to have been gallstones on your CAT scan. Please follow-up with the provided general surgeon for this. Come back to the ED at any point symptoms worsen [address] [address] Scripts Tamsulosin Hcl (FLOMAX) 0.4 Mg Cap.er.24h 1 CAP PO DAILY, #7 CAP 0 Refills Prov: SUE BRENNER APRN 08/30/20 Ondansetron (ONDANSETRON ODT) 4 Mg Tab.rapdis 1 TAB PO PRN Q6-8HRS, #16 TAB Prov: SUE BRENNER COMPUGRAPH OPERATOR 08/30/20 Ciprofloxacin Hcl (CIPRO) 500 Mg Tablet 1 TAB PO BID for 7 Days, #14 TAB 0 Refills Prov: SUE BRENNER APRN 08/30/20 Hydrocodone Bit/Acetaminophen (HYDROCODONE-APAP 5-325 ) 1 Tab Tablet 1-2 TAB PO PRN Q6HRS PRN for PAIN, #25 TAB 0 Refills Prov: SUE BRENNER APRN 08/30/20 SUE BRENNER APRN Aug 30, 2020 19:42
[2020-08-30] MEDS ORDERED: ONDA4TAB12 PO (19:55)
[2020-08-30] MEDS ORDERED: TAMS0.4C97 PO (19:55)
[2020-08-30] MEDS ORDERED: CIPR500T94 PO (19:55)
[2020-08-30] MEDS ORDERED: HYDR-2761 PO (19:55)
== END 2020-08-30 20:14 | disposition home or self-care (01) ==
LOC: ER 17:29
DX: N13.2 Hydronephrosis with renal and ureteral calculous obstruction (principal); K80.20 Calculus of gallbladder without cholecystitis without obstruction; J44.9 Chronic obstructive pulmonary disease, unspecified; F17.200 Nicotine dependence, unspecified, uncomplicated; Z79.899 Other long term (current) drug therapy
CPT/HCPCS: 36415; 74176; 80053; 80307; 81001; 83690; 83735; 85025; 87086; 96361; 96374; 96375; 96376; 99284; G0480; J0696; J1885; J2270; J2405; J7030

== ENCOUNTER → 2021-01-04 | Outpatient (CLI) | payer MEDICARE ==
[2020-10-16 07:00] VITALS: BP 139/78
[~2021-01-04] MED LIST changes: +ACET500T68 PO; +ASCO500C9 PO; +CIPR500T94 PO; +CONTRAST GIVEN. MC PRN; +HYDR-2761 PO; +IOHEXOL 240 MG/ML 50ML VIAL. PO ONE; +IOHEXOL 300 MG/ML 100ML VIAL. IV ONE; +LINE600T12 PO; +MULT-697 PO; +ONDA4TAB12 PO; +TAMS0.4C97 PO
[2021-01-04 13:33] LABS: CREATININE 0.6 mg/dL (0.7-1.3)
--- NOTE | 2021-01-04 15:34 | RAD ---
EXAMINATION: CT abdomen and pelvis with IV contrast. INDICATION:80 years, Male, abdominal pain. TECHNIQUE: Axial CT images of the abdomen and pelvis were obtained. Coronal and sagittal reformatted performed. COMPARISON: 08/30/2020. Exposure: One or more of the following individualized dose reduction techniques were utilized for thi s examination: 1. Automated exposure control 2. Adjustment of the mA and/or kV according to patient size 3. Use of iterative reconstruction technique. FINDINGS: LOWER CHEST: Unremarkable ABDOMEN/PELVIS: Diffuse edematous pancreas with peripancreatic fat stranding, new since prior exam. No loculated flui d collection to suggest abscess. No main pancreatic ductal dilatation. Multiple cholelithiasis with m ild gallbladder hydrops. No CT evidence of acute cholecystitis. No biliary ductal dilation. No suspic ious focal hepatic lesion. Calcified granulomas in the spleen. Essentially unchanged right adrenal no dule measures 2.9 x 2.2. The Hounsfield unit of this nodule measures [address] exa m, findings most consistent with benign lipid rich adenoma. Nodular thickening of the left adrenal gl and, new since prior exam. No hydronephrosis in either kidney. Few nonobstructing calculi in the left kidney with the largest in the upper pole measures 0.7 cm. Subcentimeter hypodensity in the lower pole left kidney, too small t o characterize, statistically representing cyst, unchanged. Small hiatal hernia. Stomach is decompressed which limits evaluation. No bowel obstruction or wall th ickening. Colonic diverticulosis without diverticulitis. Normal appendix. Mild aortoiliac atheroscler otic calcifications without significant narrowing or dilatation. Mesenteric arteries and portal vein are patent. No pneumoperitoneum or ascites. Underdistended urinary bladder which is evaluation. Prost atomegaly indents bladder base. Coarse calcifications. Multiple variable sized soft tissue nodules/lymph nodes in bilateral retroperitoneal regions and pelv is with the largest measures 1.0 cm, new since prior exam. MUSCULOSKELETAL: No acute osseous process. Multilevel degenerative changes in the spine. Small umbilical hernia contai jasen loop of small bowel without obstruction. Small fat-containing left inguinal hernia. IMPRESSION: 1. Acute uncomplicated interstitial edematous pancreatitis. 2. Cholelithiasis 3. Colonic diverticulosis without acute diverticulitis. 4. Small umbilical hernia containing loop of small bowel without obstruction. 5. New multiple variable sized soft tissue nodules/lymph nodes in bilateral retroperitoneal regions and pelvis measuring up to 1.0 cm. Findings indeterminate with etiology could be reactive or neoplast ic. Recommend short-term follow-up with CT abdomen and pelvis to ensure resolution. 6. Nonobstructing left nephrolithiasis. 7. Nodular thickening of the left adrenal gland, new since prior exam. Etiology could be related to recent insult. Recommend attention on follow-up imaging. Crane findings were discussed with Dr. Shira carmona on 01/04/2021 and 3:30 PM. Electronically signed by: Natasha Dimas MD (01/04/2021 3:32 PM) [facility]
== END ==
LOC: CT 12:46
PROVIDERS: ATTEND Family Medicine
DX: K80.20 Calculus of gallbladder without cholecystitis without obstruction (principal); N20.0 Calculus of kidney; K57.30 Diverticulosis of large intestine without perforation or abscess without bleeding; K42.9 Umbilical hernia without obstruction or gangrene; K82.1 Hydrops of gallbladder; K44.9 Diaphragmatic hernia without obstruction or gangrene; I70.8 Atherosclerosis of other arteries; K40.90 Unilateral inguinal hernia, without obstruction or gangrene, not specified as recurrent; M47.817 Spondylosis without myelopathy or radiculopathy, lumbosacral region; E27.8 Other specified disorders of adrenal gland; D73.89 Other diseases of spleen; K86.89 Other specified diseases of pancreas; I70.0 Atherosclerosis of aorta; Z98.890 Other specified postprocedural states
CPT/HCPCS: 36415; 74177; 82565; 84520; Q9966; Q9967